=== PATIENT | female | born 2000 | race Caucasian/White ===

== ENCOUNTER 2023-06-05 14:55 | Observation (INO) | payer OTHER, SELFPAY ==
[2023-06-05 15:33] LABS: Urine Albumin Negative (Neg - Trace); Urine Bilirubin Negative (Negative); Urine Character Clear (Clear); Urine Color Yellow; Urine Glucose Trace (Negative); Urine Ketone Negative (Negative); Urine Leukocyte Trace (Negative); Urine Nitrite Negative (Negative); Urine Occult Blood Negative (Negative); Urine Urobilinogen Negative (Neg - 1+)
[2023-06-05 15:43] LABS: Urine Red Blood Cell None Seen /HPF (0-2); Urine White Cell 0-2 /HPF (0-5)
[2023-06-05 16:00] LABS: Protein/creatinine Ratio 0.3; Urine Protein 20 mg/dl
[2023-06-05 16:22] LABS: % Basophils 0.3 % (0-2); % Eosinophils 0.5 % (0-6); % Immature Granulocytes 0.9 % (0-0.5); % Lymphocytes 19.8 % (20.5-51.1); % Monocytes 8.4 % (1.7-9.3); % Neutrophils 70.1 % (42.2-75.2); Absolute Eosinophils 0.1 10^3/uL (0-0.7); Absolute Immature Granulocytes 0.1 10^3/uL (0-0.05); Absolute Lymphocytes 2.1 10^3/uL (1.2-3.4); Absolute Monocytes 0.9 10^3/uL (0.1-0.6); Absolute Neutrophils 7.4 10^3/uL (1.4-6.5); Hematocrit 35.6 % (37.0-47.0); Hemoglobin 12.5 g/dL (12.0-16.0); Mean Corp Hgb Conc. 35.1 g/dL (33.0-37.0); Mean Corpuscular Hgb 30.3 pg (27.0-31.0); Mean Corpuscular Volume 86.4 fL (81.0-99.0); Nucleated Red Blood Cells % 0 %; Platelet Count 299 10^3/uL (130-400); Red Blood Cell Count 4.12 10^6/uL (4.20-5.40); Red Cell Dist. Width 12.6 % (11.5-14.5); White Blood Cell Count 10.6 10^3/uL (4.8-10.8)
[2023-06-05 16:36] LABS: ALT (SGPT) 11 U/L (0-35); AST (SGOT) 15 U/L (14-36); Albumin 3.2 g/dl (3.5-5.0); Alkaline Phosphatase 94 U/L (38-126); Blood Urea Nitrogen 5 mg/dl (7-17); Carbon Dioxide 23 mmol/L (22-30); Chloride 106 mmol/L (98-107); Glucose 88 mg/dl (70-99); Potassium 4.2 mmol/L (3.5-5.1); Sodium 131 mmol/L (135-145); Total Bilirubin 0.4 mg/dl (0.2-1.3); Total Protein 5.6 g/dl (6.3-8.2); eGFR > 60.00
[2023-06-05 17:12] VITALS: BP 121/61; BMI 50.5
== END 2023-06-05 17:36 | disposition home or self-care (01) ==
LOC: PNTC-IN 14:55
PROVIDERS: ADMITTING PHYSICIAN Obstetrics & Gynecology; ATTENDING PHYSICIAN Obstetrics & Gynecology
DX: O13.3 Gestational [pregnancy-induced] hypertension without significant proteinuria, third trimester (principal); Z3A.32 32 weeks gestation of pregnancy
CPT/HCPCS: 59025; 76815; 80053; 81003; 81015; 82570; 84156; 85025; G0378

== ENCOUNTER → 2023-06-16 10:53 | Outpatient (REF) | payer OTHER, SELFPAY | LOC: PNTC 10:53 | PROVIDERS: ATTENDING PHYSICIAN Obstetrics & Gynecology | DX: O99.210 Obesity complicating pregnancy, unspecified trimester (principal) | CPT/HCPCS: 59025; 76816 ==

== ENCOUNTER → 2023-06-23 11:07 | Outpatient (REF) | payer OTHER, SELFPAY | LOC: PNTC 11:07 | PROVIDERS: ATTENDING PHYSICIAN Obstetrics & Gynecology | DX: O99.210 Obesity complicating pregnancy, unspecified trimester (principal) | CPT/HCPCS: 59025; 76815 ==

== ENCOUNTER → 2023-06-30 09:32 | Outpatient (REF) | payer OTHER, SELFPAY | LOC: PNTC 09:32 | PROVIDERS: ATTENDING PHYSICIAN Obstetrics & Gynecology | DX: O99.210 Obesity complicating pregnancy, unspecified trimester (principal) | CPT/HCPCS: 59025; 76815 ==

== ENCOUNTER 2023-07-07 12:01 | Observation (INO) | payer OTHER, SELFPAY ==
[2023-07-07 12:49] VITALS: BP 153/86; BMI 51.7
[2023-07-07 12:54] LABS: % Basophils 0.2 % (0-2); % Eosinophils 0.5 % (0-6); % Immature Granulocytes 0.7 % (0-0.5); % Lymphocytes 19.7 % (20.5-51.1); % Monocytes 8.6 % (1.7-9.3); % Neutrophils 70.3 % (42.2-75.2); Absolute Eosinophils 0.1 10^3/uL (0-0.7); Absolute Immature Granulocytes 0.1 10^3/uL (0-0.05); Absolute Lymphocytes 2.1 10^3/uL (1.2-3.4); Absolute Monocytes 0.9 10^3/uL (0.1-0.6); Absolute Neutrophils 7.6 10^3/uL (1.4-6.5); Hematocrit 37.7 % (37.0-47.0); Mean Corp Hgb Conc. 34.5 g/dL (33.0-37.0); Mean Corpuscular Hgb 29.9 pg (27.0-31.0); Mean Corpuscular Volume 86.7 fL (81.0-99.0); Mean Platelet Volume 9.8 fL (7.4-10.4); Nucleated Red Blood Cells % 0 %; Platelet Count 267 10^3/uL (130-400); Red Blood Cell Count 4.35 10^6/uL (4.20-5.40); Red Cell Dist. Width 12.5 % (11.5-14.5); White Blood Cell Count 10.8 10^3/uL (4.8-10.8)
[2023-07-07 13:00] LABS: Urine Albumin Trace (Neg - Trace); Urine Bilirubin Negative (Negative); Urine Character Slightly Cloudy (Clear); Urine Color Yellow; Urine Glucose Negative (Negative); Urine Ketone Negative (Negative); Urine Leukocyte 2+ (Negative); Urine Nitrite Negative (Negative); Urine Occult Blood Negative (Negative); Urine Urobilinogen Negative (Neg - 1+)
[2023-07-07 13:15] LABS: ALT (SGPT) 12 U/L (0-35); AST (SGOT) 19 U/L (14-36); Albumin 3.1 g/dl (3.5-5.0); Alkaline Phosphatase 118 U/L (38-126); Blood Urea Nitrogen 9 mg/dl (7-17); Calcium 8.7 mg/dl (8.4-10.2); Carbon Dioxide 19 mmol/L (22-30); Chloride 108 mmol/L (98-107); Estimated Creatinine Clearance > 125 ml/min; Glucose 75 mg/dl (70-99); Potassium 4.1 mmol/L (3.5-5.1); Sodium 131 mmol/L (135-145); Total Bilirubin 0.2 mg/dl (0.2-1.3); Total Protein 5.6 g/dl (6.3-8.2); eGFR > 60.00
[2023-07-07 13:18] LABS: Urine Bacteria Few (Negative); Urine Squamous Cell >30 /LPF (Few)
[2023-07-07 13:19] LABS: Urine Red Blood Cell 0-2 /HPF (0-2); Urine White Cell 16-20 /HPF (0-5)
[2023-07-07 14:04] LABS: Protein/creatinine Ratio 0.4; Urine Protein 28 mg/dl
== END 2023-07-07 13:55 | disposition home or self-care (01) ==
LOC: PNTC-IN 12:01
PROVIDERS: Obstetrics & Gynecology; ADMITTING PHYSICIAN Obstetrics & Gynecology
DX: O14.03 Mild to moderate pre-eclampsia, third trimester (principal); Z3A.37 37 weeks gestation of pregnancy; R10.11 Right upper quadrant pain
CPT/HCPCS: 76815; 80053; 81003; 81015; 82570; 84156; 85025; G0378

== ENCOUNTER 2023-07-07 17:49 | Inpatient (IN) | payer OTHER, SELFPAY ==
[2023-07-07 17:59] VITALS: BP 136/86; BMI 51.5
[2023-07-07] MEDS: LR 1000 IV (18:00)
[2023-07-07] MEDS: CYTOTEC 50 MICROGRAM VAG (18:32)
[2023-07-07 20:12] LABS: Amphetamines Negative (Negative); Barbiturates Negative (Negative); Benzodiazepines Negative (Negative); Buprenorphine Negative (Negative); Cocaine Negative (Negative); Marijuana Negative (Negative); Methadone Negative (Negative); Methamphetamines Negative (Negative); Opiates Negative (Negative); Phencyclidine Negative (Negative); Tricyclic Antidepressants Negative (Negative)
[2023-07-07] MEDS: CYTOTEC 50 MICROGRAM PO (22:33)
[2023-07-08] MEDS: LR 1000 IV (03:51)
[2023-07-08] MEDS: CYTOTEC 50 MICROGRAM PO ×2 (04:14→08:30)
[2023-07-08] MEDS: MORPHINE SULFATE 2 MG IV (05:46)
[2023-07-08] MEDS: TRANDATE 200 MG PO (11:06)
[2023-07-08] MEDS: PITOCIN 30 UNITS/NSS 500 ML IV ×2 (12:56→21:15)
[2023-07-08] MEDS: SUBLIMAZE 100 MCG EPIDURAL (15:36)
[2023-07-08] MEDS: FENTANYL/BUPIVACAINE 100 EPIDURAL (15:37)
[2023-07-08] MEDS: TRANDATE PO (21:30)
[2023-07-08] MEDS: XYLOCAINE-MPF 1% VIAL 5 ML INFIL (21:31)
[2023-07-09] MEDS: MOTRIN 600 MG PO ×4 (00:50→22:17)
[2023-07-09] MEDS: TRANDATE 200 MG PO ×3 (00:58→20:25)
[2023-07-09 04:36] LABS: Hemoglobin 13.3 g/dL (12.0-16.0)
[2023-07-09] MEDS: SENOKOT-S 1 TABLET PO (08:32)
[2023-07-09] MEDS: PRENATAL PLUS 1 TABLET PO (08:32)
[2023-07-10] MEDS: MOTRIN 600 MG PO (04:35)
[2023-07-10] MEDS: PRENATAL PLUS 1 TABLET PO (08:01)
[2023-07-10] MEDS: TRANDATE 200 MG PO (08:02)
[2023-07-11 12:39] LABS: Syphilis/T. pallidum Ab Reflex Negative (Negative)
== END 2023-07-10 13:33 | disposition home or self-care (01) | DRG 807 ==
LOC: LDRP 17:49
PROVIDERS: Obstetrics & Gynecology; ADMITTING PHYSICIAN Obstetrics & Gynecology
PROC: 3E0P7VZ Introduction of Hormone into Female Reproductive, Via Natural or Artificial Opening (ICD-10-PCS; 2023-07-07)
PROC: 3E033VJ Introduction of Other Hormone into Peripheral Vein, Percutaneous Approach (ICD-10-PCS; 2023-07-08)
PROC: 0KQM0ZZ Repair Perineum Muscle, Open Approach (ICD-10-PCS; 2023-07-08)
PROC: 10907ZC Drainage of Amniotic Fluid, Therapeutic from Products of Conception, Via Natural or Artificial Opening (ICD-10-PCS; 2023-07-08)
PROC: 10E0XZZ Delivery of Products of Conception, External Approach (ICD-10-PCS; 2023-07-08)
DX: O14.04 Mild to moderate pre-eclampsia, complicating childbirth (principal); Z37.0 Single live birth; O70.1 Second degree perineal laceration during delivery; O66.0 Obstructed labor due to shoulder dystocia; Z3A.37 37 weeks gestation of pregnancy
CPT/HCPCS: 88307; 80306; 85014; 85018; 86780; 86850; 86900; 86901